=== PATIENT | male | born 1935 | race Caucasian/White ===

== ENCOUNTER → 2019-09-16 | Outpatient (CLI) | payer MEDICARE, BC | LOC: RAD 07:27 | DX: I71.4 Abdominal aortic aneurysm, without rupture (principal) ==

== ENCOUNTER → 2020-07-11 | Outpatient (CLI) | payer MEDICARE, BC | LOC: RAD 10:38 | DX: I71.4 Abdominal aortic aneurysm, without rupture (principal); Z85.51 Personal history of malignant neoplasm of bladder ==